=== PATIENT | female | born 2000 | race Caucasian/White ===

== ENCOUNTER 2022-08-14 18:49 | Emergency (ER) | payer MEDICAID ==
[~2022-08-14] VITALS: Ht 172.7 cm; Wt 89.0 kg
[2022-08-14 18:54] VITALS: BP 153/79
[2022-08-14 22:11] LABS: BASOPHILS % 0.2 % (0.0-2.0); EOSINOPHILS % 0.2 % (0.0-5.0); HEMATOCRIT. 34.8 % (36.0-48.0); HEMOGLOBIN. 10.9 g/dL (12.0-16.0); LYMPHOCYTES % 20.4 % (20.0-50.0); MEAN CORPUSCULAR HEMOGLOBIN 21.9 pg (28.0-32.0); MEAN CORPUSCULAR VOLUME 69.9 fL (81.0-99.0); MEAN PLATELET VOLUME 9.7 fl (7.4-10.4); MONOCYTES % 3.8 % (2.0-8.0); NEUTROPHILS % 75.4 % (40.0-76.0); PLATELET 270 x1000/uL (130-400); RED BLOOD CELL COUNT 4.97 mill/uL (4.2-5.4); RED CELL DISTRIBUTION WIDTH 20.9 % (11.6-14.6)
[2022-08-14 22:17] LABS: CHLORIDE 104 mEq/L (98-107)
[2022-08-14 22:29] LABS: B-HCG QUANTITATIVE < 1 mIU/mL (<3)
[2022-08-14 23:08] LABS: PLATELET ESTIMATE NORMAL
== END 2022-08-14 23:00 | disposition left against medical advice (07) ==
LOC: ER 18:49
DX: N92.1 Excessive and frequent menstruation with irregular cycle (principal)
CPT/HCPCS: 36415; 80053; 84702; 85025; 86850; 86900; 99283

== ENCOUNTER 2022-11-20 13:36 | Emergency (ER) | payer MEDICAID ==
[~2022-11-20] VITALS: Ht 162.6 cm; Wt 85.0 kg
[2022-11-20 15:21] VITALS: BP 119/89
[2022-11-20] MEDS ORDERED: ACETAMINOPHEN 325MG TABLET PO ONE (16:00)
[2022-11-20 20:29] LABS: CLARITY URINE CLEAR (CLEAR); COLOR URINE YELLOW (YELLOW); KETONES URINE NEGATIVE (NEGATIVE); LEUKOCYTE ESTERASE URINE NEGATIVE (NEGATIVE); NITRITE URINE NEGATIVE (NEGATIVE); OCCULT BLOOD URINE 2+ (NEGATIVE); PH URINE 6.5 (4.5-8.0); PROTEIN URINE NEGATIVE (NEGATIVE); UROBILINOGEN URINE 0.2 E.U./dL (0.2-1.0)
== END 2022-11-20 22:06 | disposition left against medical advice (07) ==
LOC: ER 14:23
DX: M54.59 Other low back pain (principal); R10.9 Unspecified abdominal pain; R19.7 Diarrhea, unspecified
CPT/HCPCS: 81003; 99283; Z7610